=== PATIENT | male | born 1950 | race Caucasian/White ===

== ENCOUNTER 2024-11-10 09:30 | Outpatient (RCR) | payer MEDICARE, SELFPAY ==
--- NOTE | 2024-10-28 10:12 | PT.OIERPT ---
PT OP Initial Eval Patient Information Outpatient Physical Therapy Treatment Date: 10/28/24 Visit Reasons: low back pain Medical Diagnosis: M54.50 Treatment Dx #1: Back Pain Treatment Dx #2: Left Hip Pain Start of Care: 10/28/24 Date of Onset: 2 years ago Smoking Status Smoking Status: Never smoker Initial Assessment Subjective: Pt is a 74 y/o male reports of chronic back and left hip pain (7/10) worsening in the past 2 years. Pt has been seeing Simeon (chiropractor) which has been helping. 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 Pt has limitation with sitting, standing, walking, chores, balance, self care, cooking, cleaning, and performing recreational activities. Objective: L/S AROM: all motions are 50% towards end range with pain in all plane Hip AROM R: WFL L Hip Flexion: 45 deg Abduction: 20 deg Extension: 10 deg ER and IR: unable due to pain Hip MMTs R: grossly 3+/5 L: 3/5 Gait Observation: trendelenburg Special Test (+) Vasques (+) FABERS Assessment: Pt demonstrate L/S mobility deficits with left hip pain leading to difficulty with ADLs. Pt will attempt physical therapy if pain persist Pt will be refer back to provider for further consultation. Short Term and Retirement Goals 1) Increase L/S AROM WFL in 6 wks to be able to perform chores 2) Increase left hip AROM WFL in 6 wks to be able to perform recreational activities 3) Decrease back pain to 2/10 in 6 wks to be able sit more than 30 mins 4) Increase Bilateral hip MMTs grossly to 4-/5 in 6 wks to be able to walk more than 30 mins 5) Indep with HEP Treatment Plan 1) Manual Therapy 2) Therapeutic Activities 3) Therapeutic Exercises 4) Modalities (ice, heat) 5) Balance Training 6) Gait Training Frequency and Duration: 2 x wk for 6 wks Certification Dates: 10/28/24 to 01/27/25 Procedure Charges OP PT Eval Mod Complex 30 minutes: Yes
--- NOTE | 2024-11-02 10:57 | PT.ODAYNRPT ---
PT Outpatient Daily Note OP Daily Note Outpatient Physical Therapy Treatment Date: 11/02/24 Visit Reasons: low back pain Subjective: Pt c/o weak L hip and LBP. Objective: Please see flow sheet for ther ex list. Assessment: Pt compensates with forward trunk flexion during hip extension, corrects post verbal cues. Plan: Continue with poC. Length of Time (minutes) of Treatment: 30 Minutes ELECTRIC MOTOR TESTER ASSEMBLER Service Modifier Method I: Divide the number of min of care provided by the ELECTRIC MOTOR TESTER ASSEMBLER/NISHA by the total min of care provided then multiply by 100. If greater than 11 percent modifier is required. Method II: Divide the total time of care provided to patient by 10 (round to the nearest whole number) and add 1 min. to set the minimum time requirement. If treatment total was 60 min., then 10% of 6 min PT CQ modifier applied: CQ Modifier applied Procedure Charges Therapeutic Exercise 30 minutes: Yes
--- NOTE | 2024-11-08 11:04 | PT.ODAYNRPT ---
PT Outpatient Daily Note OP Daily Note Outpatient Physical Therapy Treatment Date: 11/08/24 Visit Reasons: low back pain Subjective: Pt c/o increase LBP today, does not recall doing any aggravating activities. Pt mentioned that he has good and bad days when it comes to his lumbar symptoms but also feels his L hip plays a part in the pain he feels. Objective: Please see flow sheet for ther ex list. Assessment: Regressed interventions to accommodate reported pain. Plan: Continue with pOC. Length of Time (minutes) of Treatment: 30 Minutes Procedure Charges Therapeutic Exercise 30 minutes: Yes
--- NOTE | 2024-11-10 11:09 | PT.ODAYNRPT ---
PT Outpatient Daily Note OP Daily Note Outpatient Physical Therapy Treatment Date: 11/10/24 Visit Reasons: low back pain Subjective: Pt reports back is feeling better today compared to previous session. Objective: Please see flow sheet for ther ex list. Assessment: Pt demonstrates poor quad and hip flexor strength, not able to perform SLR with L LE. Pt instructed and educated on updated HEP to work on L hip strength. Plan: Continue with pOC. Length of Time (minutes) of Treatment: 30 Minutes POULTRY GRADER Service Modifier Method I: Divide the number of min of care provided by the POULTRY GRADER/RETAIL BUSINESS MANAGER by the total min of care provided then multiply by 100. If greater than 11 percent modifier is required. Method II: Divide the total time of care provided to patient by 10 (round to the nearest whole number) and add 1 min. to set the minimum time requirement. If treatment total was 60 min., then 10% of 6 min PT CQ modifier applied: CQ Modifier applied Procedure Charges Therapeutic Exercise 30 minutes: Yes
== END 2024-11-15 23:59 | disposition home or self-care (01) ==
LOC: CPTX 09:30
PROVIDERS: PCP Family Medicine; Referring Provider Family Medicine; Visit Provider Family Medicine
DX: M54.50 Low back pain, unspecified (principal); M25.552 Pain in left hip; R26.2 Difficulty in walking, not elsewhere classified; R26.89 Other abnormalities of gait and mobility; G89.29 Other chronic pain
CPT/HCPCS: 97110; 97162

== ENCOUNTER 2024-12-15 08:30 | Outpatient (RCR) | payer MEDICARE, SELFPAY ==
--- NOTE | 2024-11-18 09:30 | PT.ODAYNRPT ---
PT Outpatient Daily Note OP Daily Note Outpatient Physical Therapy Treatment Date: 11/18/24 Visit Reasons: low back pain Subjective: Pt's been feeling a little better. Pt has been doing HEP and it seems to help. Pt has difficulty with Quad set and SLR exercise due to pain and weakness. Objective: Please see flow chart for list of there x perfomed Assessment: cues to decrease post lean with nerve floss at the EOB. Pt was able to correct form and modified advised patient to sit in the chair to decrease backward leaning. Plan: Continue with PT Length of Time (minutes) of Treatment: 30 Minutes Procedure Charges Therapeutic Exercise 30 minutes: Yes
--- NOTE | 2024-11-23 09:35 | PTNOTE_ITS ---
PT Outpatient Daily Note OP Daily Note Outpatient Physical Therapy Treatment Date: 11/23/24 Visit Reasons: low back pain Subjective: Pt reports L hip pain is bad today, has difficulty getting around. Objective: Please see flow sheet for ther ex list., Assessment: Regressed interventions to accommodate reported hip pain. Plan: Continue with poC. Length of Time (minutes) of Treatment: 30 Minutes SURVEY DATA TECHNICIAN Service Modifier Method I: Divide the number of min of care provided by the SURVEY DATA TECHNICIAN/NISHA by the total min of care provided then multiply by 100. If greater than 11 percent modifier is required. Method II: Divide the total time of care provided to patient by 10 (round to the nearest whole number) and add 1 min. to set the minimum time requirement. If treatment total was 60 min., then 10% of 6 min PT CQ modifier applied: CQ Modifier applied Procedure Charges Therapeutic Exercise 30 minutes: Yes
--- NOTE | 2024-11-29 09:12 | PT.ODAYNRPT ---
PT Outpatient Daily Note OP Daily Note Outpatient Physical Therapy Treatment Date: 11/29/24 Visit Reasons: low back pain Subjective: Pt shared he attempted SLR exercise at home but notices he has high pain that lingers all day. Objective: Please see flow sheet for ther ex list. Assessment: Progressed hip strengthening interventions, minimal pain present but pt able to complete assigned reps. Plan: Continue with poC. Length of Time (minutes) of Treatment: 30 Minutes SPEECH AND HEARING DIRECTOR Service Modifier Method I: Divide the number of min of care provided by the SPEECH AND HEARING DIRECTOR/PLANT TOUR GUIDE by the total min of care provided then multiply by 100. If greater than 11 percent modifier is required. Method II: Divide the total time of care provided to patient by 10 (round to the nearest whole number) and add 1 min. to set the minimum time requirement. If treatment total was 60 min., then 10% of 6 min PT CQ modifier applied: CQ Modifier applied Procedure Charges Therapeutic Exercise 30 minutes: Yes
--- NOTE | 2024-12-01 11:46 | PT.ODS1RPT ---
PT OP Progress/Discharge Note Date of Service: 12/01/24 Progress Note/DC Note Progress Note/Discharge Note: Progress Note Patient Information Visit Reasons: low back pain Medical Diagnosis: M54.50 Treatment Dx #1: Back Pain Treatment Dx #2: Left Hip Pain Service Continue Service or Discharge: Continue Service Certification Date Certification Dates: 12/01/24 to 03/03/25 Status Subjective: Pt's back and hip is feeling much better. Pt mentioned strengthening is helping overall symptoms. Pt has been able to stand, walk, perform chores, and balance with less limitation. Pt will like to continue physical therapy. Objective: L/S AROM: all motions are 75% towards end range in all plane Hip AROM R: WNL Left Hip Flexion: 70 deg Abduction: 40 deg Extension: 15 deg ER and IR: NR Hip MMTs R: grossly 4-/5 L: grossly 3+/5 Assessment: Pt is improving with L/S mobility and hip strength allowing him to perform ADLs, ambulate, and stand longer with less pain. Pt has not met set goals and will continue to benefit from physical therapy; thank you for your referrals. Plan: Continue with PT/POC and add 6 sessions (2 x wk for 3 wks) Procedure Charges Therapeutic Exercise 30 minutes: Yes
--- NOTE | 2024-12-06 09:24 | PT.ODAYNRPT ---
PT Outpatient Daily Note OP Daily Note Outpatient Physical Therapy Treatment Date: 12/06/24 Visit Reasons: low back pain Subjective: Pt report his hip has been hurting since last PT session, was not able to get up and walk much over the weekend. Pt points to L quad at site of pain and soreness, but mentioned it is better today compared to how it felt over the weekend. Objective: Please see flow sheet for ther ex list. Assessment: Modified interventions to accommodate for complaints of pain and soreness. Plan: Continue with pOC. Length of Time (minutes) of Treatment: 30 Minutes USED CAR SALES SUPERVISOR Service Modifier Method I: Divide the number of min of care provided by the USED CAR SALES SUPERVISOR/NISHA by the total min of care provided then multiply by 100. If greater than 11 percent modifier is required. Method II: Divide the total time of care provided to patient by 10 (round to the nearest whole number) and add 1 min. to set the minimum time requirement. If treatment total was 60 min., then 10% of 6 min PT CQ modifier applied: CQ Modifier applied Procedure Charges Therapeutic Exercise 30 minutes: Yes
--- NOTE | 2024-12-08 11:40 | PT.ODAYNRPT ---
PT Outpatient Daily Note OP Daily Note Outpatient Physical Therapy Treatment Date: 12/08/24 Visit Reasons: low back pain Subjective: Pt reports best thing happen to him so far is physical therapy. Pt really feel that PT is helping the back and hip. Pt was sore from doing side step and monster walks previous session. Objective: Please see flow chart for list of ther ex performed Assessment: less cues given today to correct side step and monster walks. tolerate all exercises today with minimal pain Plan: Continue with PT Length of Time (minutes) of Treatment: 30 Minutes Procedure Charges Therapeutic Exercise 30 minutes: Yes
--- NOTE | 2024-12-13 09:18 | PTNOTE_ITS ---
PT Outpatient Daily Note OP Daily Note Outpatient Physical Therapy Treatment Date: 12/13/24 Visit Reasons: low back pain Subjective: Pt reports back is doing ok and content that his hip was not sore and painful after last session. Objective: Please see flow sheet for ther ex list. Assessment: Pt c/o L quad soreness at end of session, applied cold pack. Plan: Continue with POC. Length of Time (minutes) of Treatment: 30 Minutes EMPLOYMENT OFFICER Service Modifier Method I: Divide the number of min of care provided by the EMPLOYMENT OFFICER/NISHA by the total min of care provided then multiply by 100. If greater than 11 percent modifier is required. Method II: Divide the total time of care provided to patient by 10 (round to the nearest whole number) and add 1 min. to set the minimum time requirement. If treatment total was 60 min., then 10% of 6 min PT CQ modifier applied: CQ Modifier applied Procedure Charges Therapeutic Exercise 30 minutes: Yes
--- NOTE | 2024-12-15 09:02 | PTNOTE_ITS ---
PT Outpatient Daily Note OP Daily Note Outpatient Physical Therapy Treatment Date: 12/15/24 Visit Reasons: low back pain Subjective: Pt reports hip is hurting but notices he is tolerating PT sessions better, less pain. Objective: Please see flow sheet for ther ex list. Assessment: Improved tolerance for interventions allowing for progression of interventions in clinic. Plan: Continue with pOC. Length of Time (minutes) of Treatment: 30 Minutes BUDGET REPORT CLERK Service Modifier Method I: Divide the number of min of care provided by the BUDGET REPORT CLERK/NISHA by the total min of care provided then multiply by 100. If greater than 11 percent modifier is required. Method II: Divide the total time of care provided to patient by 10 (round to the nearest whole number) and add 1 min. to set the minimum time requirement. If treatment total was 60 min., then 10% of 6 min PT CQ modifier applied: CQ Modifier applied Procedure Charges Therapeutic Exercise 30 minutes: Yes
== END 2024-12-16 23:59 | disposition home or self-care (01) ==
LOC: CPTX 08:30
PROVIDERS: PCP Family Medicine; Referring Provider Family Medicine; Visit Provider Family Medicine
DX: M54.50 Low back pain, unspecified (principal); M25.552 Pain in left hip; G89.29 Other chronic pain; R26.2 Difficulty in walking, not elsewhere classified; R26.89 Other abnormalities of gait and mobility
CPT/HCPCS: 97110

== ENCOUNTER 2025-01-11 09:00 | Outpatient (RCR) | payer MEDICARE, SELFPAY ==
--- NOTE | 2024-12-20 12:06 | PT.ODAYNRPT ---
PT Outpatient Daily Note OP Daily Note Outpatient Physical Therapy Treatment Date: 12/20/24 Visit Reasons: LOW BACK PAIN Subjective: Pt prefers not to do resisted side step today due to left groin pain and glute. Pt is unsure of it's related to the exercise. Overall patient's back has been slowly feeling better. Objective: Please see flow chart for list of ther ex performed Assessment: no resistance on side step and able to complete without groin or hip pain. Added more core exercises today vs to hip to determine if hip exercises are causing reported pain Plan: Continue with PT Length of Time (minutes) of Treatment: 30 Minutes Procedure Charges Therapeutic Exercise 30 minutes: Yes
--- NOTE | 2025-01-03 09:28 | PTNOTE_ITS ---
PT Outpatient Daily Note OP Daily Note Outpatient Physical Therapy Treatment Date: 01/03/25 Visit Reasons: LOW BACK PAIN Subjective: Pt notices progress with LBP and hip. Pt mentioned that he notices he can alternate feet when going up steps where to as before he only go up steps leading with R LE. Objective: Please see flow sheet for ther ex list. Assessment: Verbal cues and demonstration to achieve desired motion with body blade exercise, pt able to replicate with good technique after few attempts. Plan: Continue with poC. Length of Time (minutes) of Treatment: 30 Minutes BSA/AML COMPLIANCE OFFICER Service Modifier Method I: Divide the number of min of care provided by the BSA/AML COMPLIANCE OFFICER/HEALTH WORKERS by the total min of care provided then multiply by 100. If greater than 11 percent modifier is required. Method II: Divide the total time of care provided to patient by 10 (round to the nearest whole number) and add 1 min. to set the minimum time requirement. If treatment total was 60 min., then 10% of 6 min PT CQ modifier applied: CQ Modifier applied Procedure Charges Therapeutic Exercise 30 minutes: Yes
--- NOTE | 2025-01-05 11:28 | PT.ODAYNRPT ---
PT Outpatient Daily Note OP Daily Note Outpatient Physical Therapy Treatment Date: 01/05/25 Visit Reasons: LOW BACK PAIN Subjective: Pt reports hip has been feeling better since starting PT, notices less pain. Objective: Please see flow sheet for ther ex list. Assessment: Progressing interventions per pt tolerance. Plan: Continue with poC. Length of Time (minutes) of Treatment: 30 Minutes PROCESS MANUFACTURING ENGINEER Service Modifier Method I: Divide the number of min of care provided by the PROCESS MANUFACTURING ENGINEER/SEO EXECUTIVE by the total min of care provided then multiply by 100. If greater than 11 percent modifier is required. Method II: Divide the total time of care provided to patient by 10 (round to the nearest whole number) and add 1 min. to set the minimum time requirement. If treatment total was 60 min., then 10% of 6 min PT CQ modifier applied: CQ Modifier applied Procedure Charges Therapeutic Exercise 30 minutes: Yes
--- NOTE | 2025-01-09 10:19 | PT.ODS1RPT ---
PT OP Progress/Discharge Note Date of Service: 01/09/25 Progress Note/DC Note Progress Note/Discharge Note: Progress Note Patient Information Visit Reasons: LOW BACK PAIN Medical Diagnosis: M54.50 Treatment Dx #1: Back Pain Treatment Dx #2: Left Hip Pain Service Continue Service or Discharge: Continue Service Certification Date Certification Dates: 01/09/25 to 04/11/25 Status Subjective: Pt feels much better since coming to physical therapy. Pt is taking less medication, able to go up/downstairs, and walk with less limitation. Pt still has difficulty putting on shoes, performing recreational activities, and sustaining longed activiities. Pt wants to continue physical therapy for a few more weeks. Objective: L/S AROM: all motions are WFL with end range pain in all plane Hip AROM Right: WNL Left Hip FLexion: 75 deg Abduction: 45 deg Extension: 15 deg ER and IR: unable due to pain SLS: 5 sec Assessment: Pt continues to improve with L/S mobility and hip strength allowing him to ambulate, perform chores, and walk with less limitation. Pt still exhibit left hip pain with weakness leading to difficulty with prolonged activities and recreational activities. Pt will continue to benefit from physical therapy to meet set goals in therapy; thank you for your referrals. Plan: Continue with PT/POC and add 6 sessions (2 x wk for 3 wks) Procedure Charges Therapeutic Exercise 30 minutes: Yes
--- NOTE | 2025-01-11 09:32 | PT.ODAYNRPT ---
PT Outpatient Daily Note OP Daily Note Outpatient Physical Therapy Treatment Date: 01/11/25 Visit Reasons: LOW BACK PAIN Subjective: Pt's back and hip is much better. Pt mentioned monster walk and side step exercises are getting easier with the theraband. Pt still has difficulty putting left shoe on. Objective: Please see flow chart for list of ther ex performed Assessment: instructed patient on HEP today and performed safely as he is pending further authorization. Cues to correct body blade exercises to engage warranted musculatures. Plan: Continue with PT Length of Time (minutes) of Treatment: 30 Minutes Procedure Charges Therapeutic Exercise 30 minutes: Yes
== END 2025-01-15 23:59 | disposition home or self-care (01) ==
LOC: CPTX 09:00
PROVIDERS: PCP Family Medicine; Referring Provider Internal Medicine; Visit Provider Family Medicine
DX: M54.50 Low back pain, unspecified (principal); M25.552 Pain in left hip; R53.1 Weakness; R26.2 Difficulty in walking, not elsewhere classified; R26.89 Other abnormalities of gait and mobility; G89.29 Other chronic pain
CPT/HCPCS: 97110